=== PATIENT | male | born 1945 | race Asian ===

== ENCOUNTER 2020-10-28 15:00 | Emergency (ER) | payer OTHER ==
[2020-10-28 15:13] VITALS: TEMP 97.8; BMI 19.2
[2020-10-28 16:55] LABS: BASO % 1.3 % (0-2.0); EOS % 2.5 % (0-4.5); HEMATOCRIT 40.1 % (35.4-49); HEMOGLOBIN 13.9 GM/dL (11.7-16.9); LYMPH % 32.4 % (8-40); MCH 33.4 pg (25.7-33.7); MCHC 34.7 g/dl (32.0-35.9); MEAN CELL VOLUME 96.1 fl (80-96); MEAN PLT VOLUME 6.2 fl (7.5-11.1); NEUT % 53.8 % (42.8-82.8); PLATELET COUNT 287 10^3/uL (134-434); RBC 4.17 M/mm3 (4.00-5.60); RDW 12.8 % (11.9-15.9); WHITE BLOOD COUNT 7.6 K/mm3 (4.0-10.0)
[2020-10-28 17:18] LABS: BLOOD UREA NITROGEN 17.6 mg/dL (7-18); CALCIUM 8.7 mg/dL (8.5-10.1)
[2020-10-28 17:21] LABS: CREATININE 0.9 mg/dL (0.55-1.3)
[2020-10-28] MEDS ORDERED: DOXYCYCLINE INJECTION 100 MG in DEXTROSE 5%-WATER 100 ML IVPB ONE (17:22)
[2020-10-28 17:23] LABS: BILIRUBIN,TOTAL 0.6 mg/dL (0.2-1); TOT PROT 7.3 g/dl (6.4-8.2)
[2020-10-28] MEDS ORDERED: AMOX TR/POT CLAV 875MG/125MG TABLETS (FP) PO ONE (17:25)
[2020-10-28] MEDS ORDERED: AMOX TR/POT CLAV 875MG/125MG TABLETS (FP) ONE (17:37)
[2020-10-28] MEDS ORDERED: DOXYCYCLINE HYCLATE 100 MG VIAL ONE (17:39)
[2020-10-28] MEDS ORDERED: DALBAVANCIN HCL 1,500 MG in DEXTROSE 5%-WATER - 500 ML IVPB ONE (20:54)
[2020-10-28] MEDS ORDERED: DALBAVANCIN HCL 500 MG VIAL (RESTRICTED TO ID ONLY) IVPB ONE (21:25)
[2020-10-28 22:52] VITALS: BP 143/78; PULSE 78
== END 2020-10-28 22:53 | disposition home or self-care (01) ==
LOC: JERFT 15:00 → JER 15:00
DX: L03.319 Cellulitis of trunk, unspecified (principal); L02.219 Cutaneous abscess of trunk, unspecified
CPT/HCPCS: 36415; 71260-TC; 80053; 85025; 87040; 87070; 87205; 93005; 93010; 96365; 96366; 99285-25; C9803; J0875; Q9967; U0003; U0005